=== PATIENT | female | born 1975 | race Two or more races ===

== ENCOUNTER 2020-08-02 10:15 | Inpatient (IN) | payer OTHER ==
[~2020-08-02] VITALS: Ht 175.3 cm; Wt 68.0 kg
[2020-08-11] MEDS ORDERED: IBUPROFEN800 MG PO (06:45)
[2020-08-11] MEDS ORDERED: NEURONTIN600 MG PO (06:45)
[2020-08-11] MEDS ORDERED: POLY119PG PO (06:45)
[2020-08-11] MEDS ORDERED: SIMETHICONE125 M1 PO (06:45)
== END 2020-08-11 08:44 | disposition home or self-care (01) | DRG 743 ==
LOC: O/R 08-09 05:45 → OB/GYN 08-09 05:45 → SURH 08-09 07:00 → RECOVERY 08-09 10:15 → OB/GYN 08-09 12:25
PROVIDERS: ADMIT Obstetrics & Gynecology; ATTEND Obstetrics & Gynecology
PROC: 0UB70ZZ Excision of Bilateral Fallopian Tubes, Open Approach (ICD-10-PCS; 2020-08-09)
PROC: 0UB10ZZ Excision of Left Ovary, Open Approach (ICD-10-PCS; 2020-08-09)
PROC: 0UT90ZZ Resection of Uterus, Open Approach (ICD-10-PCS; principal; 2020-08-09 07:00)
DX: N72 Inflammatory disease of cervix uteri (principal); D25.1 Intramural leiomyoma of uterus; D25.0 Submucous leiomyoma of uterus; D25.2 Subserosal leiomyoma of uterus; D27.1 Benign neoplasm of left ovary